=== PATIENT | male | born 1975 | race Caucasian/White ===

== ENCOUNTER 2021-01-04 20:22 | Emergency (ER) | payer BC ==
[2021-01-04] MEDS ORDERED: Dexamethasone 10 MG/ML VIAL ONE (22:15)
== END 2021-01-04 22:36 | disposition home or self-care (01) ==
LOC: ERS 20:22
DX: T63.441A Toxic effect of venom of bees, accidental (unintentional), initial encounter (principal); E11.9 Type 2 diabetes mellitus without complications; Z87.891 Personal history of nicotine dependence; Z79.84 Long term (current) use of oral hypoglycemic drugs; Z79.899 Other long term (current) drug therapy
CPT/HCPCS: 96372; 99282; J1100